=== PATIENT | male | born 1945 | race Caucasian/White ===

== ENCOUNTER 2016-12-25 13:27 | Inpatient (IN) | payer BC ==
[~2016-12-25] VITALS: Ht 154.9 cm; Wt 82.8 kg
[2016-12-25 16:14] LABS: CHLORIDE SERUM 103 mmol/L (98-107); CREATININE SERUM 1.6 mg/dL (0.7-1.3); GLUCOSE SERUM 161 mg/dL (74-106); POTASSIUM SERUM 3.9 mmol/L (3.5-5.1); SODIUM SERUM 143 mmol/L (136-145)
[2016-12-25 16:18] LABS: PLATELET COUNT 168 x10^3mcL (130-400); RED CELL DISTRIBUTION WIDTH 13.3 % (11.5-14.5)
[2016-12-25 16:26] LABS: ALBUMIN 4.4 g/dL (3.4-5.0); ALKALINE PHOSPHATASE 66 U/L (46-116); ALT/SGPT 41 U/L (16-63); AMYLASE 47 U/L (25-115); AST/SGOT 25 U/L (15-37); BILIRUBIN TOTAL 0.8 mg/dL (0.20-1.00); CHOLESTEROL 167 mg/dL (<200); HDL CHOLESTEROL 48 mg/dL (40-60); LIPASE 89 IU/L (73-393); T4(THYROXINE) 9.7 ug/dL (4.7-13.3)
[2016-12-25 16:27] LABS: TOTAL PROTEIN, SERUM 8.5 g/dL (6.4-8.2)
[2016-12-25 17:12] LABS: BAND NEUTROPHIL 7 % (0-10); METAMYELOCTE 2 % (0-2); MONOCYTE 5 % (0-7); SEGMENTED NEUTROPHILS 80 % (37-75); rbc morphology (normal/abnorm) NORMAL (NORMAL)
[2016-12-25 17:13] LABS: PLATELET MORPHOLOGY FEW LARGE PLATELETS
[2016-12-25] MEDS ORDERED: ASPIR 8181 MG PO (18:18)
[2016-12-25] MEDS ORDERED: ZOCOR20 MG PO (18:18)
[2016-12-25 18:46] LABS: AMPHETAMINE QUAL UR NONE DETECTED (NEG <=1000)
[2016-12-25 18:56] VITALS: BP 138/51
[2016-12-25 19:12] LABS: microscopic required? YES
[2016-12-25 19:13] LABS: urine erythrocyte NEGATIVE (NEGATIVE)
[2016-12-25 20:53] LABS: PHOSPHOROUS 3.5 mg/dL (2.5-4.9)
[2016-12-25 21:49] VITALS: BP 123/59
[2016-12-25] MEDS ORDERED: SIMVASTATIN20 M1 PO (23:11)
[2016-12-26 05:33] VITALS: BP 117/58
[2016-12-26 06:19] LABS: CALCIUM 8.3 mg/dL (8.5-10.1); CARBON DIOXIDE 29.2 mmol/L (21-32); CHLORIDE SERUM 108 mmol/L (98-107); GLUCOSE SERUM 99 mg/dL (74-106); POTASSIUM SERUM 3.9 mmol/L (3.5-5.1); SODIUM SERUM 146 mmol/L (136-145)
[2016-12-26 08:02] LABS: BASOPHIL % 0.4 % (0-2); PLATELET COUNT 136 x10^3mcL (130-400); RED CELL DISTRIBUTION WIDTH 13.7 % (11.5-14.5)
[2016-12-26 09:02] VITALS: BP 116/50
[2016-12-26 13:00] VITALS: BP 116/52
[2016-12-26 15:30] VITALS: BP 116/52
== END 2016-12-26 16:39 | disposition home or self-care (01) | DRG 391 ==
LOC: ED 13:27 → DU 18:09
PROVIDERS: Emergency Medicine; ADMIT Family Medicine
DX: K29.00 Acute gastritis without bleeding (principal); N17.0 Acute kidney failure with tubular necrosis; N39.0 Urinary tract infection, site not specified; E86.0 Dehydration; R73.03 Prediabetes; E78.5 Hyperlipidemia, unspecified; E66.9 Obesity, unspecified; Z79.82 Long term (current) use of aspirin; Z68.34 Body mass index [BMI] 34.0-34.9, adult; Z87.891 Personal history of nicotine dependence
CPT/HCPCS: 83880; J0696; J2405; J7030; Q0092